=== PATIENT | male | born 1945 | race Asian ===

== ENCOUNTER → 2020-01-16 12:36 | Outpatient (CLI) | payer MEDICARE, SELFPAY ==
[2020-01-12 14:37] VITALS: BMI 21.1
--- NOTE | 2020-01-16 12:55 | RAD_ITS ---
STUDY: X-RAY BONE SURVEY COMPLETE REASON FOR EXAM: Male, 74 years old. Abnormal blood work. Evaluation for multiple myeloma. TECHNIQUE: A total of 21 images of the chest, cervical, thoracic and lumbar spine, upper and lower extremities and pelvis were obtained. COMPARISON: None. FINDINGS: CHEST: The lungs are clear and expanded. There is no demonstrated pleural abnormality. Normal size heart. Normal mediastinum and jani. Normal visualized pulmonary arteries. Normal visualized aortic arch and descending thoracic aorta. Degenerative changes of the thoracic spine. Normal visualized ribs, clavicles, and shoulders. There is no demonstrated abnormality of the visualized soft tissue structures of the upper abdomen. PELVIS: There is a non-specific bowel gas pattern. Normal visualized soft tissue structures. Normal bilateral iliac wings, sacroiliac joints and visualized sacrum. Normal visualized bilateral superior and inferior pubic rami. Normal pubic symphysis. Normal ischial tuberosities. Normal visualized right femoral head. Normal right acetabulum. Normal right hip joint. Normal visualized left femoral head. Normal left acetabulum. Normal left hip joint. 1 cm lobulated calcification in the medial right lower quadrant. CERVICAL SPINE: Normal anterior atlantoaxial articulation. Normal odontoid process. Straightening of the normal cervical lordosis. Multilevel disc space narrowing and marginal osteophytes. The soft tissue structures are unremarkable. THORACIC SPINE: Normal kyphosis of the thoracic spine. There is no substantial scoliosis. Mild marginal osteophytes at multiple levels. Normal disc space heights. The soft tissue structures are unremarkable. LUMBAR SPINE: Normal lumbar lordosis. There is no substantial scoliosis. There is a normal alignment of the vertebrae. Normal vertebral bodies and endplates. Multilevel disc space narrowing. The soft tissue structures are unremarkable. RIGHT FEMUR: Normal visualized femur. Normal visualized soft tissue structure. LEFT FEMUR: Normal visualized femur. Normal visualized soft tissue structure. RIGHT HUMERUS :Normal visualized humerus. There is no demonstrated fracture or osseous destructive process. There is no demonstrated soft tissue abnormality. LEFT HUMERUS:Normal visualized humerus. There is no demonstrated fracture or osseous destructive process. There is no demonstrated soft tissue abnormality. SKULL: There is no demonstrated soft tissue swelling. Normal osseous calvarium. Normal visualized facial bones. Normal visualized paranasal sinuses. RAD/Bone Survey Comp(Axial&Append) IMPRESSION: No lytic lesions identified on bone survey. Degenerative changes of the cervical, thoracic and lumbar spine. No acute cardiopulmonary disease. Nonspecific bowel gas pattern without evidence of obstruction. Lobulated calcification medial aspect right lower quadrant. Considerations include a calcified lymph node, ureteral stone or appendicolith. If the patient has right lower quadrant pain, consider correlation with CT of the abdomen and pelvis. Electronically Signed: Ricardo Forbes MD at 0:29 EDT , Service support ,
[2020-01-18 16:08] LABS: Albumin, Ur 6.3 % (.); Alpha-1-Globulin, Ur 0.5 % (.); Alpha-2-Globulins, Ur 1.8 % (.); Beta Globulin, Ur 1.8 % (.); Gamma Globulin, Ur 89.6 % (.); M-Spike, Ur % 86.7 % (Not Observed); M-Spike, Ur mg/24Hr 4692 mg/24 hr (Not Observed); Protein, 24Ur 5412 mg/24 hr (30-150); Total Protein, Ur 181.9 mg/dL (Not Estab.)
== END ==
PROVIDERS: PCP Student in an Organized Health Care Education/Training Program; Referring Provider Internal Medicine Hematology & Oncology; Visit Provider Internal Medicine Hematology & Oncology
DX: D47.2 Monoclonal gammopathy (principal); R80.9 Proteinuria, unspecified
CPT/HCPCS: 77075; 81050; 84166; 86335

== ENCOUNTER → 2020-01-18 09:09 | Outpatient (CLI) | payer MEDICARE, SELFPAY ==
[2020-01-12 14:37] VITALS: BMI 21.1
--- NOTE | 2020-01-17 | BMB_PTH ---
PATIENT: KAYLYN FRY LOC: [place] U#:[id number] AGE/SX: 79/M ROOM: RE01/18/[address]: Dr. Yola Dyer MD : 1945 BED: DIS: SPEC #: [id number] RECD: 01/18/20 11:34 STATUS: RICO REJaleesa #: [id number] VANESSA: 01/17/20 00:[address]: Yola Dyer DEPT: BONE MARROW RECD BY: Tom Easley ENTERED: 01/18/20 11:35 SP TYPE: BMB MADDISON DR: Dr. Froilan Jaimes DO Tissues: A - Bone marrow, NOS B - Bone marrow, NOS C - Bone marrow, NOS Procedures: Bone Marrow Aspiration Bone Marrow Core Biopsy Iron Stain Bone Marrow HEADER OPERATION: Bone marrow biopsy and aspiration PRE-OP DIAGNOSIS: MGUS, IGG-IC, CRF TISSUE SUBMITTED: A - Core, B - Clot, C - Smears, and send outs (flow, cytogenetics, MM FISH) BONE MARROW DIAGNOSIS Right hip bone marrow core, clot and aspirate smears: Plasma cell dyscrasia with kappa monoclonality consistent with multiple myeloma. Iron - 4+, a few atypical sideroblasts are noted, significant increase of atypical or ring sideroblasts are not seen. [facility] shows the findings are consistent with a plasma cell neoplasm. The complete report is viewable in patient's EMR. Cytogenetic and FISH studies are pending at this time. See comment. SJ:francesca 01/20/20 COMMENT Immunohistochemistry ([id number]) supports the above diagnosis. Correlation with clinical, laboratory, radiologic findings and appropriate follow up are necessary. Case has been reviewed in consultation with Dr. Dye who concurs with the above diagnosis. IDC:AM BONE MARROW STUDY Slides are reviewed. CBC DATE: 01/18/20 WBC 10.4; RBC 5.4; HGB 11.3; HCT 30.3; MCV 64.8; RDW 15.7; PLTS 394,000 SEGS 78.8%; LYMPHS 11.7%; MONOS 8.5%; EOS 0.1%; BASOS 0.3% PERIPHERAL SMEAR: Submitted. RBC: Mild microcytic anemia. WBC: Unremarkable. The WBC count is compatible to as reported above. PLTS: Adequate. BONE MARROW ASPIRATE DIFFERENTIAL: 200 cell count. Blasts % (normal 0-2): 0 Promyelocytes % (normal 1-5): 0 Myelocytes and metamyelocytes % (normal 17-41): 16 Bands and Segs % (normal 15-32): 32 Eos % (normal 1-6): 1 Basos % (normal 0-1): 1 Monocytes % (normal 0-4): 0 Erythroid Precursors % (normal 17-35): 18 Lymphocytes % (normal 7-13): 3 Plasma Cells % (normal 0-2): 29 ASPIRATE FINDINGS: Site: Right hip Spicular, Cellular M/E ratio: 2.7 (Normal 1.5-4.0) Megakaryocytes: Present, micro and hypolobated megakaryocytes are noted. Erythropoiesis: Normoblastic. Granulopoiesis: Progressive and unremarkable. Comment: Increased number of plasma cells are noted. The significant increase of immature plasma cells is not seen. CORE BIOPSY FINDINGS: Site: Right hip Comment: The specimen entirely consists of scant amount of blood clots. A few plasma cells are noted mixed with peripheral blood cells. ASPIRATE CLOT FINDINGS: Site: Right hip Marrow particles: Numerous Cellularity: 50% M/E ratio: Within normal limits. Megakaryocytes: Present and adequate in number. Granulomas: Absent. Lymphoid aggregates: Absent. Atypical infiltrates: Present. Comment: Increased number of plasma cells are noted. They comprise about 30% of total nucleated cell population. Focal clustering including nodular aggregates also noted. Immunohistochemistry ([id number]) shows increased number of plasma cells with kappa monoclonality, consistent with multiple myeloma. SPECIAL STAINS WITH MATCHED CONTROLS: Iron: 4+, a few atypical sideroblasts are noted. Significant increase of atypical or ring sideroblasts are not seen. Reticulin: No significant increase of reticulin fibers is noted. PAS: Highlights myeloid cells and megakaryocytes. BONE MARROW GROSS A - Received is a container labeled with the patient's name and designated right hip. The specimen consists of a scant amount of blood clot, submitted for cell block preparation. B - Received labeled with the patient's name and designated right hip is a specimen that consists of approximately 10 cc of bloody fluid that on filtration yields multiple minute fragments of blood clots measuring in aggregate 2 x 1 x 0.1 cm. The specimen is totally submitted in one cassette. C - Also received are 13 unstained and 1 peripheral stained slides. The unstained slides are submitted for appropriate staining. Also received are two green top tubes which are sent to our reference lab for flow, cytogenetics, MM?FISH. / SJ:rg 01/18/20 TC:0 CPT: 21456, 63476, 82315 x2, 30800 x3 ADDENDUM ADDENDUM ADDENDUM ADDENDUM ADDENDUM ADDENDUM ADDENDUM ADDENDUM ADDENDUM ADDENDUM ADDENDUM ADDENDUM ADDENDUM ADDENDUM ADDENDUM ADDENDUM ADDENDUM ADDENDUM ADDENDUM ADDENDUM ADDENDUM ADDENDUM ADDENDUM ADDENDUM ADDENDUM ADDENDUM 01/26/2020 09:58 ADDENDUM 01/26/2020 09:58 ADDENDUM 01/26/2020 09:58 ADDENDUM 01/26/2020 09:58 ADDENDUM 01/26/2020 09:58 CYTOGENETICS REPORT FROM [facility] INTERPRETATION: Loss of Y chromosome was found in four out of twenty cells. No other aberrations were identified and sixteen normal cells were found. Karyotype: 45,X,-Y[4]/46,XY[16] MULTIPLE MYELOMA FISH PANEL INTERPRETATION: 1. No evidence of IGH-MAF [translocation t(14;16)] gene rearrangement Comment: 28.33% of nuclei show 2 orange and 1 green signals. 2. RB1 monosomy (13q14 deletion) is present. Comment: The presence of deletion 13q (or monosomy 13) in the absence of t(4;14) or deletion 17p is associated with an intermediate prognosis (References: Blood 2009Feb 14;116(15):e56-65, Blood 2002;101(11):4125-34.) 3. No evidence of CCND1-IGH [translocation t(11;14)] gene rearrangement, and no evidence for trisomy 11 or gain of 11q. Comment: 24.33% of nuclei show 2 orange and 1 green signals. 4. No evidence of p53 (17p13) deletion or amplification. 5. No evidence of FGFR3-IGH [translocation t(4;14)] gene rearrangement. Comment: 25.33% of nuclei show 2 orange and 1 green signals. 6. Negative for 1q21/CKS1B gain Comment: 14.33% of nuclei show 2 orange and 1 green signals. Please see complete report in e-chart or EMR for further details
[2020-01-18] VITALS (10 sets, daily range): BP systolic 109–146; BP diastolic 32–85; PULSE 78–90; RESP 16–19; TEMP 36.6–36.7; O2SAT 97–100; BMI 20.3
--- NOTE | 2020-01-18 | IMM_PTH ---
PATIENT: KAYLYN FRY LOC: CT U#:[id number] AGE/SX: 79/M ROOM: RE01/18/[address]: Dr. Yola Dyer MD : 1945 BED: DIS: SPEC #: [id number] RECD: 01/19/20 12:14 STATUS: RICO REQ #: [id number] VANESSA: 01/18/20 00:[address]: Yola Dyer DEPT: IMMUNOHISTOCHEMISTRY RECD BY: Elizabeth Wells ENTERED: 01/19/20 12:17 SP TYPE: IMMUNO OTHR DR: Dr. Froilan Jaimes DO Tissues: B - Bone marrow of iliac crest Procedures: CD138 (initial) KAPPA (add) LAMBDA (add) PHYSICIAN & INSTITUTION [place] [id number] SPECIMEN INFORMATION: Tissue Source: B - Right hip bone marrow clot Clinical Info: MGUS, IGG-IC, CRF Specimen Number: [id number] CPT code: 66161, 72714 x2 METHODOLOGY: Deparaffinized sections of prefer/formalin-fixed tissue or PAP/DQ stained slides are incubated with monoclonal/polyclonal antibodies/oligonucleotide probes. Localization is made via biotin free immunoperoxidase method. Appropriate controls are performed and reacted as expected. Results on target cell population are indicated in the following table: RESULTS: ANTIBODY / CLONE RESULT Block B CD138 (B-A38) positive Anita (polyclonal) positive Lambda (polyclonal) negative These tests were developed and their performance characteristics determined by [facility]. They may not have been cleared or approved by the U.S. Food and Drug Administration. The FDA has determined that such clearance or approval is not necessary. The above immunohistochemical/dualISH markers are ordered and reviewed by the Pathologist. INTERPRETATION: B. Right hip bone marrow clot: Plasma cell dyscrasia with kappa monoclonality consistent with multiple myeloma. SJ:francesca 01/20/20
--- NOTE | 2020-01-18 09:11 | CT_ITS ---
PROCEDURE: CT GUIDED BONE marrow biopsy and bone marrow aspiration of the posterior right iliac bone. DATE: 01/18/2020. INDICATION: Male, 74 years old. Multiple myeloma. PHYSICIAN: Wili Rosado M.D. RADIATION DOSAGE (If Supplied By Facility): CTDIvol = ( 19 ) mGy, DLP = ( 351.9 ) mGycm. Individualized dose augmentation techniques were utilized. PROCEDURE: The risks, benefits, and alternatives to the procedure were explained to the patient and the patient''s daughter. The specific risk of hemorrhage requiring further treatment or intervention was detailed and accepted. Follow-up instructions were discussed with the patient as well. Written informed consent was obtained. The patient was brought into the CT suite and placed in the prone position. . An appropriate entry site was identified. The overlying skin was prepped and draped in the usual sterile fashion. 1% lidocaine was administered subcutaneously for local anesthesia. Conscious sedation was performed. The patient received 2 mg of VERSED and 50 mcg of FENTANYL intravenously. Conscious sedation was started at 10:06 AM and terminated at 10:22 AM. The patient was independently monitored by the department nurse. Under CT guidance, a bone marrow biopsy and bone marrow aspirate of the posterior aspect of the right iliac bone were performed utilizing an 11-gauge bone marrow biopsy kit. The specimens were then placed in the appropriate fluid and transported to the laboratory for analysis. Hemostasis was obtained. The patient tolerated the procedure well without immediate complications. CT/Biopsy/Inj or Needle Placement IMPRESSION: Successful CT guided bone marrow biopsy and aspiration of the posterior aspect of the right iliac bone, as described above. The conscious sedation protocol was followed. Electronically Signed: Wili Rosado, at 11:01 EDT , Service support ,
[2020-01-18] MEDS: fentaNYL 100 MCG/2 ML Ampul IV (10:06)
[2020-01-18] MEDS: Midazolam 2 MG/2 ML Syringe IV (10:06)
[2020-01-18 10:46] LABS: Absolute Lymphocyte Count 1.22 X10^3/uL (0.83-4.51); Absolute Neutrophil Count 8.2 X10^3/uL (2.0-7.7); Basophil# 0.03 X10^3/uL; Basophil% 0.3 % (0-1); Eosinophil# 0.01 X10^3/uL; Eosinophils% 0.1 % (0-5); Hematocrit 35.3 % (40-54); Hemoglobin 11.3 g/dL (13.0-16.5); Lymphocyte # 1.22 X10^3/ul (4.0); Lymphocyte % 11.7 % (19-41); Mean Corpuscular Hgb 20.7 pg (27.0-32.0); Mean Corpuscular Volume 64.8 fL (80-94); Mean Platelet Vol. 9.3 fl (6.2-12.0); Monocyte# 0.89 X10^3/uL; Monocyte% 8.5 % (0-10); NRBC Flagged by Analyzer 0 % (0-5); Neutrophil # 8.21 X10^3/uL (2.7-7.7); Neutrophil % 78.8 % (47-70); Platelet Count 394 K/mm3 (150-450); RBC Distribution Width CV 15.7 % (11.6-14.6); RBC Distribution Width SD 35.5 fl (35.1-43.9); Red Blood Count 5.45 M/mm3 (4.6-6.2); White Blood Count 10.4 K/mm3 (4.4-11.0)
[2020-01-24 07:27] LABS: Bone Marrow Aspiraton SEE PATHOLOGY REPORT
== END ==
PROVIDERS: PCP Student in an Organized Health Care Education/Training Program; Referring Provider Internal Medicine Hematology & Oncology; Visit Provider Internal Medicine Hematology & Oncology
DX: C90.00 Multiple myeloma not having achieved remission (principal); D47.2 Monoclonal gammopathy; I12.9 Hypertensive chronic kidney disease with stage 1 through stage 4 chronic kidney disease, or unspecified chronic kidney disease; N18.3 Chronic kidney disease, stage 3 (moderate); D50.9 Iron deficiency anemia, unspecified; R80.9 Proteinuria, unspecified; E78.00 Pure hypercholesterolemia, unspecified
CPT/HCPCS: 38222; 36415; 77012; 85025; 88305; 88311; 88313; 88341; 88342; 99155; 99156; 99157

== ENCOUNTER 2020-07-10 10:43 | Outpatient (RCR) | payer MEDICARE, SELFPAY ==
[2020-07-04 13:45] VITALS: BMI 20.8
[2020-07-10] MEDS: COVID-19 VACC, MRNA(PFIZER)/PF 30 MCG/0.3 ML SYRINGE IM (17:17)
[2020-07-31] MEDS: COVID-19 VACC, MRNA(PFIZER)/PF 30 MCG/0.3 ML SYRINGE IM (16:52)
== END 2020-10-09 23:59 ==
LOC: IMMUN 10:43
PROVIDERS: PCP Student in an Organized Health Care Education/Training Program; Referring Provider Family Medicine; Visit Provider Family Medicine
DX: Z23 Encounter for immunization (principal)
CPT/HCPCS: 0001A; 0002A; 91300

== ENCOUNTER 2022-07-02 07:38 | Day surgery (SDC) | payer MEDICARE, OTHER, SELFPAY ==
[2022-07-02] VITALS (9 sets, daily range): BP systolic 66–149; BP diastolic 47–83; PULSE 61–72; RESP 16–18; TEMP 36.1–36.5; O2SAT 92–100; BMI 18.8
[2022-07-02] MEDS: Lactated Ringers 1,000 ML 15 ML IV (08:18)
--- NOTE | 2022-07-02 08:31 | HP.PCM_ITS ---
History and Physical Date of Admission: 07/02/22 77 M who presents to the office today accompanied by daughter for referred by application technical designer oncologist for colonoscopy.? Dr. Dyer follows him for multiple myeloma, hemoglobin E trait, anemia.? He had some unintentional weight loss in Summer 2021 which has stabilized, he has lost approximately 10 pounds.? He has chronic constipation, patient suggests this has been an issue for a long time.? His daughter notes he has difficulty moving his bowels unless he takes MiraLAX and Metamucil daily, however she does not want him to have to use those every day, partly because he gets confusing taking multiple medications.? She thinks he has never had a colonoscopy.? No diarrhea.? No melena or hematochezia.? He denies abdominal pain.? She reports he intermittently has had difficulty swallowing, no emergency room visits for food bolus in the esophagus.? He denies heartburn or acid reflux.? No nausea or vomiting. ROS Const Constitutional: Positive for fatigue ENT ENT: No difficulty swallowing Gastro GI: No abdominal pain, belching, bloating, change in bowel habits, change in stool character, coffee ground emesis, constipation, cramping, diarrhea, heartburn, difficulty swallowing, feeling full early, excessive flatus, incontinent of stools, Vomiting blood/hematemesis, Blood in stool, loose stools, Black,tarry stools, nausea/dyspepsia, pain with swallowing, vomiting or other Musc Musculoskeletal: Positive for back pain, numbness and tingling; No joint pain Skin Skin: No yellowing of the eye or itchy eyes Neuro Neurology: Positive for numbness and tingling Psych Psychiatric: No anxiety and No depression Endo Endocrine: Positive for fatigue Aller/Imm Allergy/Immunologic: No itchy eyes Gokul/Lymp Hematologic/Lymphatic: No easy bleeding or easy bruising Exam Const General: cooperative, healthy appearing and comfortable Orientation: alert, awake and oriented x3 Resp Effort & Inspection: normal respiratory effort GI Inspection: normal to inspection Palpation: soft, no hepatosplenomegaly, no masses and nontender Quality Reporting Tobacco Screening ([facility] 138) Smoking Status: Never smoker Assessment and Plan Assessment and Plan (1) Weight loss: ?Status:?Acute ?Plan: 77-year-old male accompanied by his daughter with unexplained weight loss, chronic constipation, referral for screening colonoscopy, dysphagia.? He will be scheduled for EGD and colonoscopy, with follow-up in the office 2 weeks later to review biopsy results.? Recommend he continue MiraLAX and Metamucil since those effectively manage his constipation. (2) Constipation: ?Status:?Acute ?Plan: As above (3) Dysphagia: ?Status:?Acute ?Plan: As above I have examined the patient and the H&P has been reviewed. There are no clinical changes since date of exam.
--- NOTE | 2022-07-02 08:45 | COLBX_PTH ---
PATIENT: KAYLYN FRY LOC: EN U#:[id number] AGE/SX: 77/M ROOM: RE07/02/[address]: Dr. Tye Baxter DO : 1945 BED: DIS: 07/02/2022 SPEC #: [id number] RECD: 07/02/22 09:28 STATUS: RICO REJaleesa #: [id number] VANESSA: 07/02/22 08:[address]: Tye Baxter DEPT: SURGICAL PATHOLOGY RECD BY: Tom Easley ENTERED: 07/02/22 12:38 SP TYPE: COLON BX OTHR DR: Dr. Froilan Jaimes DO Tissues: A - Duodenum, NOS B - COLON BIOPSY C - Esophagus, NOS Procedures: Special Stain Group II Surgery Specimen Level IV Alcian Blue/PAS (control) HEADER OPERATION: Colonoscopy, EGD ([facility]), biopsy PRE-OP DIAGNOSIS: Weight loss, constipation, dysphagia TISSUE SUBMITTED: A ? Duodenum biopsy, B ? Antrum biopsy for H. pylori and path, C ? Distal esophagus MICROSCOPIC DIAGNOSIS A. Duodenum, biopsy: A fragment of duodenal mucosa, no pathologic diagnosis. B. Antrum, biopsy: Moderate chronic active gastritis. See comment. C. Distal esophagus, biopsy: Fragments of gastroesophageal mucosa with chronic inflammation. Intestinal metaplasia (goblet cell metaplasia) is not identified. See comment. SJ:francesca 07/03/2022 COMMENT B. The results of immunohistochemistry for Helicobacter pylori will be reported separately ([id number]). C. Alcian blue/PAS stain with matched control is used in the evaluation of the specimen. MICROSCOPIC DESCRIPTION Slides are reviewed. GROSS DESCRIPTION A - Received in fixative is one container labeled with the patient's name and designated duodenum biopsy. The specimen consists of one irregular fragment of light gonzales soft tissue that measures 0.6 x 0.3 x 0.1 cm. The specimen is totally submitted in one cassette. B - Received in fixative is one container labeled with the patient's name and designated antrum biopsy. The specimen consists of two irregular fragments of light gonzales soft tissue that in aggregate measure 0.6 x 0.3 x 0.1 cm. The specimen is totally submitted in one cassette. C - Received in fixative is one container labeled with the patient's name and designated distal esophagus. The specimen consists of two irregular fragments of light gonzales soft tissue that in aggregate measure 0.6 x 0.5 x 0.1 cm. The specimen is totally submitted in one cassette. / SJ:francesca 07/02/2022 TC:2 CPT: 05681 x3, 84121
--- NOTE | 2022-07-02 08:45 | IMM_PTH ---
PATIENT: KAYLYN FRY LOC: EN U#:[id number] AGE/SX: 77/M ROOM: RE07/02/[address]: Dr. Tye Baxter DO : 1945 BED: DIS: 07/02/2022 SPEC #: [id number] RECD: 07/02/22 13:41 STATUS: RICO REQ #: [id number] VANESSA: 07/02/22 08:[address]: Tye Baxter DEPT: IMMUNOHISTOCHEMISTRY RECD BY: Elizabeth Wells ENTERED: 07/02/22 13:41 SP TYPE: IMMUNO OTHR DR: Dr. Froilan Jaimes DO Tissues: B - Stomach, NOS Procedures: H Pylori (initial) PHYSICIAN & INSTITUTION [place] [id number] SPECIMEN INFORMATION: Tissue Source: A - Antrum Clinical Info: Weight loss, constipation, dysphagia Specimen Number: [id number] CPT code: 65681 METHODOLOGY: Deparaffinized sections of prefer/formalin-fixed tissue or PAP/DQ stained slides are incubated with monoclonal/polyclonal antibodies/oligonucleotide probes. Localization is made via biotin free immunoperoxidase method. Appropriate controls are performed and reacted as expected. Results on target cell population are indicated in the following table: RESULTS: ANTIBODY / CLONE RESULT Block A H Pylori (polyclonal) positive These tests were developed and their performance characteristics determined by [facility]. They may not have been cleared or approved by the U.S. Food and Drug Administration. The FDA has determined that such clearance or approval is not necessary. The above immunohistochemical/dualISH markers are ordered and reviewed by the Pathologist. INTERPRETATION: A. Antrum, biopsy: Positive for numerous Helicobacter pylori organisms. SJ:francesca 07/03/2022
--- NOTE | 2022-07-02 09:13 | OP.EGD_ITS ---
Patient Name: Shelli Mariano Procedure Date: 07/02/2022 8:37 AM Date of : 1945 Age: 77 Procedure: Upper GI endoscopy Indications: Dysphagia Providers: Tye Baxter DO Medicines: Monitored Anesthesia Care Patient Profile: This is a 77 year old male. Refer to note in patient chart for documentation of history and physical. Patient has symptoms of chronic dysphagia. Complications: No immediate complications. Procedure: Pre-Anesthesia Assessment: - Prior to the procedure, a History and Physical was performed, and patient medications and allergies were reviewed. The risks and benefits of the procedure and the sedation options and risks were discussed with the patient. All questions were answered and informed consent was obtained. Patient identification and proposed procedure were verified by the physician in the pre-procedure area. Mental Status Examination: alert and oriented. Airway Examination: normal oropharyngeal airway and neck mobility. Respiratory Examination: clear to auscultation. CV Examination: normal. Prophylactic Antibiotics: The patient does not require prophylactic antibiotics. Prior Anticoagulants: The patient has taken no previous anticoagulant or antiplatelet agents. ASA Grade Assessment: II - A patient with mild systemic disease. After reviewing the risks and benefits, the patient was deemed in satisfactory condition to undergo the procedure. The anesthesia plan was to use monitored anesthesia care (MAC). Immediately prior to administration of medications, the patient was re-assessed for adequacy to receive sedatives. The heart rate, respiratory rate, oxygen saturations, blood pressure, adequacy of pulmonary ventilation, and response to care were monitored throughout the procedure. The physical status of the patient was re-assessed after the procedure. After obtaining informed consent, the endoscope was passed under direct vision. Throughout the procedure, the patient's blood pressure, pulse, and oxygen saturations were monitored continuously. The colonoscope was introduced through the mouth, and advanced to the second part of duodenum. The upper GI endoscopy was accomplished without difficulty. The patient tolerated the procedure well. Scope In: 8:46:42 AM Scope Out: 8:51:21 AM Total Procedure Duration Time 0 hours 4 minutes 39 seconds Findings: A moderate Schatzki ring was found in the middle third of the esophagus. A guidewire was placed and the scope was withdrawn. Dilation was performed with a Savary dilator with no resistance at 45 Fr. The dilation site was examined and showed moderate improvement in luminal narrowing. Estimated blood loss was minimal. The Z-line was irregular and was found 39 cm from the incisors. Biopsies were taken with a cold forceps for histology. Verification of patient identification for the specimen was done. Estimated blood loss was minimal. Striped mildly erythematous mucosa without bleeding was found at the incisura and in the gastric antrum. Biopsies were taken with a cold forceps for histology. Verification of patient identification for the specimen was done. Estimated blood loss was minimal. The second portion of the duodenum was normal. Biopsies were taken with a cold forceps for histology. Verification of patient identification for the specimen was done. Estimated blood loss was minimal. Impression: - Moderate Schatzki ring. Dilated. - Z-line irregular, 39 cm from the incisors. Biopsied. - Erythematous mucosa in the incisura and antrum. Biopsied. - Normal second portion of the duodenum. Biopsied. Recommendation: - Discharge patient to home. - Resume previous diet. - Continue present medications. - Await pathology results. Procedure Code(s): --- Professional --- 34451, Esophagogastroduodenoscopy, flexible, transoral; with insertion of guide wire followed by passage of dilator(s) through esophagus over guide wire 70013, 59,51, Esophagogastroduodenoscopy, flexible, transoral; with biopsy, single or multiple CPT copyright 2017 [employer]. All rights reserved. The codes documented in this report are preliminary and upon instrumentation tech review may be revised to meet current compliance requirements. Tye Baxter DO 07/02/2022 9:12:41 AM This report has been signed electronically. Number of Addenda: 0 Note Initiated On: 07/02/2022 8:37 AM
--- NOTE | 2022-07-02 09:13 | OP.CCLET_ITS ---
07/02/2022 Froilan Jaimes Do Re : Upper GI endoscopy procedure for Shelli Mariano Dear Fiona This procedure was performed on Saturday, July 02, 2022. My impressions and recommendations are as follows: Impressions : - Moderate Schatzki ring. Dilated. - Z-line irregular, 39 cm from the incisors. Biopsied. - Erythematous mucosa in the incisura and antrum. Biopsied. - Normal second portion of the duodenum. Biopsied. Recommendations : - Discharge patient to home. - Resume previous diet. - Continue present medications. - Await pathology results. My findings are described in the full procedure note, which is enclosed. If I can be of further assistance, please feel free to contact me at . Sincerely, Tye Baxter, 07/02/2022 9:12:41 AM This report has been signed electronically.
--- NOTE | 2022-07-02 09:14 | OP.COLON_ITS ---
Patient Name: Shelli Mariano Procedure Date: 07/02/2022 8:51 AM Date of : 1945 Age: 77 Procedure: Colonoscopy Indications: Screening for colorectal malignant neoplasm Providers: Tye Baxter DO Medicines: Monitored Anesthesia Care Patient Profile: This is a 77 year old male. Refer to note in patient chart for documentation of history and physical. Patient has symptoms of chronic dysphagia. Last Colonoscopy: none. The patient's first colonoscopy is today. Complications: No immediate complications. Procedure: Pre-Anesthesia Assessment: - Prior to the procedure, a History and Physical was performed, and patient medications and allergies were reviewed. The risks and benefits of the procedure and the sedation options and risks were discussed with the patient. All questions were answered and informed consent was obtained. Patient identification and proposed procedure were verified by the physician in the pre-procedure area. Mental Status Examination: alert and oriented. Airway Examination: normal oropharyngeal airway and neck mobility. Respiratory Examination: clear to auscultation. CV Examination: normal. Prophylactic Antibiotics: The patient does not require prophylactic antibiotics. Prior Anticoagulants: The patient has taken no previous anticoagulant or antiplatelet agents. ASA Grade Assessment: II - A patient with mild systemic disease. After reviewing the risks and benefits, the patient was deemed in satisfactory condition to undergo the procedure. The anesthesia plan was to use monitored anesthesia care (MAC). Immediately prior to administration of medications, the patient was re-assessed for adequacy to receive sedatives. The heart rate, respiratory rate, oxygen saturations, blood pressure, adequacy of pulmonary ventilation, and response to care were monitored throughout the procedure. The physical status of the patient was re-assessed after the procedure. After I obtained informed consent, the scope was passed under direct vision. Throughout the procedure, the patient's blood pressure, pulse, and oxygen saturations were monitored continuously. The colonoscope was introduced through the anus and advanced to the terminal ileum. The colonoscopy was performed without difficulty. The patient tolerated the procedure well. The quality of the bowel preparation was good. Scope In: 8:54:08 AM Scope Withdrawal Time 0 hours 5 minutes 52 seconds Scope Out: 9:03:59 AM Total Procedure Duration Time 0 hours 9 minutes 51 seconds Findings: The perianal and digital rectal examinations were normal. The colon (entire examined portion) appeared normal. No additional abnormalities were found on retroflexion. Impression: - The entire examined colon is normal. - No specimens collected. Recommendation: - Discharge patient to home. - Resume previous diet. - Continue present medications. - Repeat colonoscopy in 10 years for screening purposes. Procedure Code(s): --- Professional --- G0121, Colorectal cancer screening; colonoscopy on individual not meeting criteria for high risk CPT copyright 2017 [employer]. All rights reserved. The codes documented in this report are preliminary and upon youth career specialist review may be revised to meet current compliance requirements. Tye Baxter DO 07/02/2022 9:14:41 AM This report has been signed electronically. Number of Addenda: 0 Note Initiated On: 07/02/2022 8:51 AM
--- NOTE | 2022-07-02 09:15 | OP.CCLET_ITS ---
07/02/2022 Froilan Jaimes Do Re : Colonoscopy procedure for Shelli Mariano Dear Fiona This procedure was performed on Saturday, July 02, 2022. My impressions and recommendations are as follows: Impressions : - The entire examined colon is normal. - No specimens collected. Recommendations : - Discharge patient to home. - Resume previous diet. - Continue present medications. - Repeat colonoscopy in 10 years for screening purposes. My findings are described in the full procedure note, which is enclosed. If I can be of further assistance, please feel free to contact me at . Sincerely, Tye Baxter, 07/02/2022 9:14:41 AM This report has been signed electronically.
== END 2022-07-02 10:14 | disposition home or self-care (01) ==
LOC: EN 07:44 → AC 07:46
PROVIDERS: PCP Student in an Organized Health Care Education/Training Program; Referring Provider Student in an Organized Health Care Education/Training Program; Visit Provider Internal Medicine Gastroenterology
PROC: 0DJD8ZZ Inspection of Lower Intestinal Tract, Via Natural or Artificial Opening Endoscopic (ICD-10-PCS; CPT 45378; principal; 2022-07-02 08:40)
DX: Z12.11 Encounter for screening for malignant neoplasm of colon (principal); C90.00 Multiple myeloma not having achieved remission; E21.3 Hyperparathyroidism, unspecified; D58.2 Other hemoglobinopathies; N18.31 Chronic kidney disease, stage 3a; B96.81 Helicobacter pylori [H. pylori] as the cause of diseases classified elsewhere; D64.9 Anemia, unspecified; K59.09 Other constipation; D50.9 Iron deficiency anemia, unspecified; E78.00 Pure hypercholesterolemia, unspecified; I12.9 Hypertensive chronic kidney disease with stage 1 through stage 4 chronic kidney disease, or unspecified chronic kidney disease; Z79.82 Long term (current) use of aspirin; Z79.899 Other long term (current) drug therapy; K29.50 Unspecified chronic gastritis without bleeding; K21.00 Gastro-esophageal reflux disease with esophagitis, without bleeding; K22.2 Esophageal obstruction
CPT/HCPCS: G0121; 43239; 43248; 88305; 88313; 88342; J7120; J2405

== ENCOUNTER → 2022-08-08 | Outpatient (CLI) | payer MEDICARE, OTHER, SELFPAY ==
--- NOTE | 2022-08-08 10:45 | MRI_ITS ---
STUDY: MRI BRAIN WITHOUT CONTRAST REASON FOR EXAM: Male, 77 years old. TINNITUS, HEARING LOSS TECHNIQUE: Multiplanar multisequence imaging of the brain was performed without the administration of intravenous contrast. COMPARISON: None. FINDINGS: The ventricles, cisterns, and sulci are prominent consistent with age-related volume loss. There is no restricted diffusion to suggest acute ischemia or infarction. Major intracranial signal voids are preserved. There is high T2/FLAIR signal seen in the periventricular deep white matter. There is no midline shift, mass effect, or extra axial fluid collections are seen. No CP angle or IAC mass is seen. No abnormal postcontrast enhancement. The orbits are unremarkable. The sella turcica and craniovertebral junction are within normal limits. The visualized paranasal sinuses are clear. The mastoid air cells are clear. MRI/Brain W/WO Contrast IMPRESSION: Chronic microvascular ischemic changes. No acute intracranial findings. Electronically Signed: Ricardo Rene MD at 20:23 EDT ,
== END | disposition home or self-care (01) ==
LOC: MRI 10:29
PROVIDERS: PCP Student in an Organized Health Care Education/Training Program; Referring Provider Otolaryngology; Visit Provider Otolaryngology
DX: H93.12 Tinnitus, left ear (principal); H90.3 Sensorineural hearing loss, bilateral
CPT/HCPCS: 70553; A9575

== ENCOUNTER 2022-08-09 10:53 | Emergency (ER) | payer MEDICARE, OTHER, SELFPAY ==
[2022-08-09 10:54] VITALS: BP 114/74; PULSE 67; RESP 16; TEMP 36.6; O2SAT 100; BMI 17.2
--- NOTE | 2022-08-09 11:31 | EX.ED.DYSGE1 ---
HPI History of Present Illness Chief Complaint: Weakness Informant: patient and family Narrative Narrative: Patient currently here with daughter currently translating Harjinder, sent in from oncology I spoke with Lien Ng who knows the patient prior to his arrival. Patient had a normal 2 weeks chemo on Thursday reported that he had increasing fatigue therefore labs were obtained findings sodium 124. He is put on fluid restriction. Daughter reported chest x-ray performed on Thursday. He was on antibiotics for treatment for H. pylori he finished clarithromycin this past week. It was expensive therefore it was delayed he was treated other 2 antibiotics prior from his endoscopies 8 weeks ago with positive results. For the past 2 days increasing diarrhea at least 3 episodes today to today yellow mucus. Nonbloody. Denies abdominal pain. Denies fevers. Reports increasing fatigue weakness per daughter seems more confused. Patient with no cough. No urinary symptoms. No vomiting. Due to worsening clinical symptoms sent in here for evaluation. Patient being treated for multiple myeloma for the past couple years. He is on dexamethasone and Velcade and had no issues in the past with electrolytes. Prior similar symptoms: No PFSH PFSH Medical History Anemia Blepharitis Bradycardia Bruising Cancer Chronic kidney disease, stage 3a CINV (chemotherapy-induced nausea and vomiting) Drug-induced hyperkalemia Dysphagia Encounter for chemotherapy management history of left foot repair Hx of multiple myeloma Hypercholesteremia Hypertension Hyponatremia Hyponatremia Iron deficiency anemia Loss of hearing Low iron Non-smoker Right knee pain Wears dentures Weight loss Home Medications aspirin 81 mg chewable tablet 81 mg PO DAILY@0800 05/30/20 [History Last Taken Unknown] Handicap Placard #1 ea 07/24/21 [Rx Last Taken Unknown] ascorbate calcium (vitamin C) 500 mg tablet 500 mg PO DAILY 07/24/21 [History Last Taken Unknown] folic acid 0.8 mg capsule 0.8 mg PO DAILY 07/24/21 [History Last Taken Unknown] losartan 25 mg tablet 100 mg PO DAILY 10/30/21 [History Last Taken 07/02/22] cholecalciferol (vitamin D3) 1,250 mcg (50,000 unit) capsule 1,250 mcg PO QWEEK #6 caps 11/01/21 [Rx Last Taken Unknown] dexamethasone 4 mg tablet 20 mg PO QWEEK #60 tabs 03/03/22 [Rx Last Taken Unknown] amlodipine 5 mg tablet 5 mg PO DAILY 06/26/22 [History Last Taken 07/02/22] atorvastatin 10 mg tablet 10 mg PO QHS 06/26/22 [History Last Taken Unknown] polyethylene glycol 3350 17 gram/dose oral powder (Miralax) 17 g PO DAILY 06/26/22 [History Last Taken Unknown] psyllium husk 3.4 gram/5.4 gram oral powder (Metamucil) 1 tbsp PO DAILY 06/26/22 [History Last Taken Unknown] acyclovir 400 mg tablet See Rx Instructions .Route .COMPLEX #60 tabs 07/02/22 [Rx Last Taken Unknown] Allergy/AdvReac Type Severity Reaction Status Date / Time No Known Allergies Allergy Verified 08/06/22 13:40 Family History Mother Hypertension Father Hypertension Brother Hypertension Surgical History History of bone marrow biopsy History of foot surgery Social History household members: spouse housing: house Smoking Status: Never smoker second hand exposure: No details: one weekly substance use type: does not use caffeine: Yes (1) eating out: rarely or never lincoln/jainism: None seatbelt use: always do you feel safe at home: Yes ROS ROS ED Constitutional Constitutional ED: Denies chills, fever(s) or sweats Eyes Eyes: Denies change in vision ENT ENT ED: Denies dysphagia or sore throat Cardiovascular Cardiovascular: Denies chest pain, leg edema, palpitations or racing heartbeat Respiratory/Chest Respiratory/Chest: Denies cough, dyspnea or dyspnea on exertion Gastrointestinal Gastrointestinal: Reports diarrhea; Denies abdominal pain, nausea or vomiting Genitourinary Genitourinary ED: Denies dysuria, hematuria or urinary frequency Musculoskeletal Musculoskeletal: Denies back pain, extremity pain or neck pain Integumentary Denies rash or wounds Neurologic Neurologic: Reports weakness; Denies headache(s) or paresthesias EXAM Physical Exam Const Vital Signs: 08/09/22 10:54 08/09/22 11:11 08/09/22 12:53 Temperature 97.8 F Temperature Source Temporal Pulse Rate 67 Respiratory Rate 16 18 Respiratory Effort Normal Non-Labored Respiratory Pattern Normal Blood Pressure 114/74 Blood Pressure Mean 87 Pulse Ox 100 Oxygen Delivery Method Room Air 08/09/22 14:00 08/09/22 16:00 Temperature Temperature Source Pulse Rate Respiratory Rate 18 Respiratory Effort Respiratory Pattern Blood Pressure 118/72 Blood Pressure Mean 87 Pulse Ox Oxygen Delivery Method Positive well nourished and well developed Constitutional Narrative: Alert, nontoxic awake. language barrier. Daughter able to translate. General Appearance ED: well developed and NAD HEENT HEENT Narrative: Mild dry mucosal membranes normocephalic and atraumatic Eyes PERRL, EOMs intact bilaterally and conjunctivae normal General Eye ED: Yes normal appearance of both eyes Neck no lymphadenopathy and supple General: Negative for tenderness Chest Wall Chest: Negative for tenderness Resp normal respiratory effort and normal air movement Effort and Inspection: symmetric chest movement; Negative for respiratory distress Cardio regular rate, regular rhythm and no murmurs Peripheral Pulses: pulses 2+ throughout GI normal to inspection, nondistended, normoactive bowel sounds and non-tender Palpation: Negative for guarding or rebound tenderness present Back/Spine no CVA tenderness and no thoracic nor lumbar tenderness Extremity normal to inspection General Extremety ED: Negative for edema or tenderness General Extremity: Negative for edema Neuro no sensory deficits noted Sensorium / Orientation: awake and alert Skin no rashes or lesions noted and no wounds MDM MDM MDM Narrative Medical decision making narrative: Interventions / MDM: Differential diagnosis: Diarrhea, C. difficile, electrolyte abnormalities, dehydration, neutropenia Diagnosis considered but do not suspect: Colitis, nontender on exam. My EKG interpretation: N/A Imaging independently reviewed and interpreted by myself: N/A External documents reviewed: N/A Test considered but not ordered:N/A ED course: Patient vitals signs stable, mild dry mucosal membranes. Recent chemo, no fevers, nontender abdomen. Patient have labs and blood culture due to his chemo. He was given fluids due to fluid loss over the last 3 days. Total 1 L with good given. Creatinine 1.37 up from 0.893 days ago. Typically baseline around 1.1. White count 12.9 and potassium was 3.1. Sodium up to 131. Improved from 124. urine negative. With recent antibiotics along with diarrhea, waited for stools which was collected. Enteropathic pathogens were negative. C. difficile antigen and toxin negative. Tolerating oral fluid in the middle in the ED. Discussed likely viral process at this time. Re-evaluation: stable. Discussed with oncology, will increase fluid restriction to 2 L. We will continue plans for blood draw on Thursday to be seen on Thursday. Updated patient and family. Disposition discussed with patient/family/significant other: Patient and daughter. Case discussed with consulting clinician: oncology, Berenice Lab Data Attestation: I reviewed the patient's lab results. Labs: Laboratory Results - last 24 hr 08/09/22 08/09/22 08/09/22 11:50 11:58 11:58 WBC 12.9 H RBC 5.35 Hgb 11.2 L Hct 33.1 L MCV 61.9 L MCH 20.9 L MCHC 33.8 RDW Std Deviation 37.8 RDW Coeff of [place] 18.5 H Plt Count 215 Immature Gran % (Auto) 0.400 Neut % (Auto) 76.7 H Lymph % (Auto) 15.5 L Citrus % (Auto) 7.2 Eos % (Auto) 0.0 Baso % (Auto) 0.2 Absolute Neuts (auto) 9.9 H Absolute Lymphs (auto) 1.99 Nucleated RBC % 0 Sodium 131 L Potassium 3.4 L Chloride 106 Carbon Dioxide 18.0 L Anion Gap 7 BUN 34 H Creatinine 1.37 H Estim Creat Clear Calc 31.78 Est GFR (MDRD) Af Amer 65 Est GFR (MDRD) Non-Af 54 L BUN/Creatinine Ratio 24.8 H Glucose 117 H Calcium 8.7 Total Bilirubin 0.40 AST 40 H ALT 19 Alkaline Phosphatase 63 Total Protein 6.4 Albumin 3.5 Globulin 2.9 Albumin/Globulin Ratio 1.2 Urine Color Yellow Urine Clarity Clear Urine pH 6.0 Ur Specific [place] 1.015 Urine Protein 15 H Urine Glucose (UA) Normal Urine Ketones Negative Urine Occult Blood Negative Urine Nitrite Negative Urine Bilirubin Negative Urine Urobilinogen Normal Ur Leukocyte Esterase Negative Urine RBC 0 SEEN Urine WBC 0 SEEN Ur Squamous Epith Cells 0 SEEN Urine Bacteria 0 SEEN Urine Mucus 0 SEEN Discharge Plan Triage Chief Complaint: Weakness ED Provider: Chris Casper Dx/Rx/DC Orders Clinical Impression: Hyponatremia, Dehydration, Acute renal insufficiency, Diarrhea Instructions: ED Dehydration (Adult), ED Hyponatremia, ED Renal Insufficiency Prescriptions: No Action folic acid 0.8 mg capsule 0.8 mg PO DAILY ascorbate calcium (vitamin C) 500 mg tablet 500 mg PO DAILY (DME) Handicap Placard See Rx Instructions .Route .MEDSUPPLY Qty: 1 0RF Rx Instructions: Lifetime, No Expiration losartan 25 mg tablet 100 mg PO DAILY aspirin 81 MG tablet,chewable 81 mg PO DAILY@0800 dexamethasone 4 mg tablet 20 mg PO QWEEK Qty: 60 12RF Rx Instructions: Take 20 mg in a.m. Every week on days of chemotherapy atorvastatin 10 mg tablet 10 mg PO QHS Label Comments: TAKE 1 TABLET BY MOUTH EVERYDAY AT BEDTIME amlodipine 5 mg tablet 5 mg PO DAILY Label Comments: TAKE 1 TABLET BY MOUTH EVERY DAY FOR 60 DAYS polyethylene glycol 3350 [Miralax] 17 gram/dose Powder 17 g PO DAILY Metamucil 3.4 gram/5.4 gram Powder 1 tbsp PO DAILY Rx Instructions: mix into at least 8 oz of water or juice before administering cholecalciferol (vitamin D3) 1,250 mcg (50,000 unit) capsule 1,250 mcg PO QWEEK Qty: 6 1RF acyclovir 400 mg tablet See Rx Instructions .ROUTE .COMPLEX Qty: 60 12RF Dose Instruction: TAKE 1 TABLET BY MOUTH TWICE A DAY FOR 30 DAYS - START DAY OF FIRST CHEMOTHERAPY Rx Instructions: TAKE 1 TABLET BY MOUTH TWICE A DAY Primary Care Provider: Froilan Jaimes Referrals: Froilan Jaimes DO [Primary Care Provider] - Argenis Ng CIRCUIT RIDER, VANDANA-C [Med Staff - [facility]] - Keep Maral appointment Activity Restrictions/Additional Instructions: Current 1.37 today. Sodium 131. Potassium 3.4. Stool studies negative including C. difficile antigen and toxin. Continue plans with recheck labs on Thursday and follow-up with Argenis on Thursday. Fluid restriction can go up to 2 L. Disposition Disposition: Home, Self Care Discharge Date/Time: 08/09/22 16:09
[2022-08-09 11:57] LABS: Bacteria 0 SEEN /hpf (None Seen); Mucous, Urine 0 SEEN /hpf (<or=2+); Red Blood Cells-Urine 0 SEEN /hpf (0-5); Squamous Epithelial Cells - UA 0 SEEN /hpf (0-5); White Blood Cells 0 SEEN /hpf (0-5)
[2022-08-09 12:09] LABS: Color, Urine Yellow (Yellow); Glucose, Dipstick Normal (Normal); Ketone-Dipstick Negative (Negative); Leukocyte Esterase-Dipstick Negative /ul (Negative); Nitrite-Dipstick Negative (Negative); Occult Blood-Urine Negative /ul (Negative); Protein-Dipstick 15 mg/dl (Negative); Specific Gravity, Urine 1.015 (1.002-1.030); Urine Bilirubin Dipstick Negative (Negative); Urine Clarity Clear (Clear); Urine Urobilinogen Normal (Normal)
[2022-08-09 12:33] LABS: Absolute Lymphocyte Count 1.99 X10^3/uL (0.83-4.51); Absolute Neutrophil Count 9.9 X10^3/uL (2.0-7.7); Basophil# 0.02 X10^3/uL; Basophil% 0.2 % (0-1); Hematocrit 33.1 % (40-54); Hemoglobin 11.2 g/dL (13.0-16.5); Lymphocyte # 1.99 X10^3/ul (0.83-4.51); Lymphocyte % 15.5 % (19-41); Mean Corp Hgb Conc 33.8 g/dL (32-36); Mean Corpuscular Hgb 20.9 pg (27.0-32.0); Mean Corpuscular Volume 61.9 fL (80-94); Monocyte# 0.93 X10^3/uL; Monocyte% 7.2 % (0-10); NRBC Flagged by Analyzer 0 % (0-5); Neutrophil # 9.87 X10^3/uL (2.7-7.7); Neutrophil % 76.7 % (47-70); Platelet Count 215 K/mm3 (150-450); RBC Distribution Width CV 18.5 % (11.6-14.6); RBC Distribution Width SD 37.8 fl (35.1-43.9); Red Blood Count 5.35 M/mm3 (4.6-6.2); White Blood Count 12.9 K/mm3 (4.4-11.0)
[2022-08-09 12:51] LABS: ALB/GLOB Ratio 1.2 RATIO (0.9-2.4); AST(SGOT) 40 U/L (15-37); Alanine Aminotransfer ALT/SGPT 19 U/L (16-61); Albumin, Serum 3.5 g/dL (3.2-5.0); Alkaline Phosphatase 63 U/L (45-117); Anion Gap 7 (5-15); BUN 34 mg/dL (7-18); BUN/Creat Ratio 24.8 RATIO (10-20); Calcium,Total 8.7 mg/dL (8.5-10.1); Chloride 106 mmol/L (98-107); Creatinine, Serum 1.37 mg/dL (0.70-1.30); EST Glomerular Filtration Rate 54 mL/min (>60); Est Glom Filt Rate - Afr Amer 65 mL/min (>60); Estimated Creatinine Clearance 31.78 ml/min; Globulin 2.9 g/dL (2.2-4.2); Glucose 117 mg/dL (74-106); Potassium 3.4 mmol/L (3.5-5.1); Protein, Total 6.4 g/dL (6.4-8.2); Sodium Level 131 mmol/L (136-145)
[2022-08-09 12:53] VITALS: RESP 18
[2022-08-09 14:00] VITALS: BP 118/72
[2022-08-09] MEDS: Potassium Chloride Oral Tablet 20 MEQ 40 MEQ PO (14:41)
[2022-08-09 16:00] VITALS: RESP 18
== END 2022-08-09 16:09 | disposition home or self-care (01) ==
PROVIDERS: Emergency Provider Emergency Medicine; PCP Student in an Organized Health Care Education/Training Program; Visit Provider Emergency Medicine
DX: E86.0 Dehydration (principal); N18.31 Chronic kidney disease, stage 3a; I12.9 Hypertensive chronic kidney disease with stage 1 through stage 4 chronic kidney disease, or unspecified chronic kidney disease; E78.00 Pure hypercholesterolemia, unspecified; E87.1 Hypo-osmolality and hyponatremia; R19.7 Diarrhea, unspecified
CPT/HCPCS: 80053; 81001; 85025; 87040; 87086; 87493; 87506; 96360; 99283; J7030; A4216

== ENCOUNTER → 2022-09-15 | Outpatient (CLI) | payer MEDICARE, OTHER, SELFPAY ==
[2022-09-17 11:09] LABS: H. PYLORI STOOL AG Negative (Negative)
== END | disposition home or self-care (01) ==
LOC: LABSPEC 09:07
PROVIDERS: Nurse Practitioner Adult Health; PCP Student in an Organized Health Care Education/Training Program; Referring Provider Internal Medicine Gastroenterology; Visit Provider Internal Medicine Gastroenterology
DX: A04.8 Other specified bacterial intestinal infections (principal)
CPT/HCPCS: 87338

== ENCOUNTER 2023-01-30 08:07 | Outpatient (CLI) | payer MEDICARE, OTHER, SELFPAY ==
[2023-01-30] MEDS: Cosyntropin 0.25 MG Vial IM (08:32)
[2023-01-30 08:38] VITALS: BP 121/77; PULSE 66; RESP 16; TEMP 36.1; O2SAT 100; BMI 16.6
[2023-01-30 09:09] LABS: CORTISOL SERUM < 0.50 ug/dL (3.44-22.45)
== END 2023-01-30 08:08 | disposition home or self-care (01) ==
LOC: MEDOUTP 08:10
PROVIDERS: PCP Student in an Organized Health Care Education/Training Program; Referring Provider Internal Medicine Endocrinology, Diabetes & Metabolism; Visit Provider Internal Medicine Endocrinology, Diabetes & Metabolism
DX: E27.49 Other adrenocortical insufficiency (principal)
CPT/HCPCS: 36415; 82533; 96372; J0834

== ENCOUNTER → 2023-11-03 | Outpatient (CLI) | payer MEDICARE, OTHER, SELFPAY ==
--- NOTE | 2023-11-03 10:24 | CT_ITS ---
INDICATION: PRESEPTAL CELLULITIS EXAMINATION: CT ORBITS WITH IV CT IAC/PF/Orbit/Sella W/ Contrast Injection TECHNIQUE: Helically acquired images were obtained of the orbits. Multiplanar reformations were reviewed. The protocol utilizes one or more of the following dose reduction techniques: automated exposure control, adjustment of mA and/or kV according to patient size,and/or use of iterative reconstruction technique. IV Contrast dosage and agent: 100 cc of Isovue-300 RADIATION DOSAGE (If Supplied By Facility): CTDIvol = ( 29.68 ) mGy, DLP = ( 451.96 ) mGycm COMPARISON: No relevant prior comparison study available FINDINGS: SOFT TISSUES: Right preseptal soft tissue swelling and edema. No evidence of abnormal fluid collection or drainable abscess. Tiny pockets of air could represent trapped air under the eyelid. Air within the soft tissues is less likely. VISUALIZED PARANASAL SINUSES: Mucosal thickening of the ethmoids and maxillary sinuses. The ostiomeatal complexes bilaterally appear to be occluded. BONES: No acute fracture. ORBITAL CONTENTS: Previous bilateral cataract surgery. CT/Orb Sella Post Fossa Ear W/CON IMPRESSION: 1. Right preseptal and periorbital soft tissue swelling and edema as described above. No evidence of drainable abscess or abnormal fluid collections 2. Sinus disease. Electronically Signed: Reynold Leone MD at 11:35 EDT ,
[2023-11-03 10:49] LABS: Absolute Lymphocyte Count 2.42 X10^3/uL (0.83-4.51); Absolute Neutrophil Count 7.7 X10^3/uL (2.0-7.7); Basophil# 0.07 X10^3/uL; Basophil% 0.6 % (0-1); Eosinophil# 0.33 X10^3/uL; Eosinophils% 2.8 % (0-5); Hematocrit 39.3 % (40-54); Hemoglobin 12.5 g/dL (13.0-16.5); Lymphocyte # 2.42 X10^3/ul (0.83-4.51); Lymphocyte % 20.4 % (19-41); Mean Corp Hgb Conc 31.8 g/dL (32-36); Mean Corpuscular Hgb 21.3 pg (27.0-32.0); Monocyte# 1.27 X10^3/uL; Monocyte% 10.7 % (0-10); NRBC Flagged by Analyzer 0 % (0-5); Neutrophil # 7.71 X10^3/uL (2.7-7.7); Platelet Count 200 K/mm3 (150-450); RBC Distribution Width CV 16.3 % (11.6-14.6); RBC Distribution Width SD 36.2 fl (35.1-43.9); Red Blood Count 5.87 M/mm3 (4.6-6.2); White Blood Count 11.9 K/mm3 (4.4-11.0)
== END | disposition home or self-care (01) ==
PROVIDERS: PCP Student in an Organized Health Care Education/Training Program; Referring Provider Ophthalmology; Visit Provider Ophthalmology
DX: H00.031 Abscess of right upper eyelid (principal)
CPT/HCPCS: 36415; 70481; 85025; Q9967; A4216